=== PATIENT | female | born 1955 | race Hispanic/Latino ===

== ENCOUNTER → 2018-06-07 | Outpatient (CLI) | payer OTHER | END | disposition home or self-care (01) | LOC: RAH 09:04 | PROVIDERS: ATTEND Family Medicine | DX: Z12.31 Encounter for screening mammogram for malignant neoplasm of breast (principal) | CPT/HCPCS: 77067 ==

== ENCOUNTER → 2019-06-08 | Outpatient (CLI) | payer OTHER | END | disposition home or self-care (01) | LOC: RAH 13:54 | PROVIDERS: ATTEND Family Medicine | DX: Z12.31 Encounter for screening mammogram for malignant neoplasm of breast (principal) | CPT/HCPCS: 77067 ==

== ENCOUNTER → 2020-07-11 | Outpatient (CLI) | payer OTHER | END | disposition home or self-care (01) | LOC: RAH 14:36 | PROVIDERS: ATTEND Family Medicine | DX: Z12.31 Encounter for screening mammogram for malignant neoplasm of breast (principal); N64.89 Other specified disorders of breast | CPT/HCPCS: 77067 ==

== ENCOUNTER → 2020-11-05 | Outpatient (CLI) | payer OTHER | END | disposition home or self-care (01) | LOC: RAH 13:57 | PROVIDERS: ATTEND Family Medicine | DX: N60.01 Solitary cyst of right breast (principal) | CPT/HCPCS: 76641; 77065 ==

== ENCOUNTER 2021-06-29 11:22 | Emergency (ER) | payer OTHER ==
[~2021-06-29] VITALS: Ht 162.6 cm; Wt 59.0 kg
[2021-06-29 13:14] LABS: HEMATOCRIT 41.2 % (36-48); MEAN CORPUSCULAR HEMOGLOBIN 29.5 pg (27.0-33.0); MEAN CORPUSCULAR HGB CONC 32.8 g/dL (32.0-36.0); MEAN CORPUSCULAR VOLUME 90.2 fL (79-99); PLATELET COUNT (AUTO) 274 K/uL (130-400); RED BLOOD CELL COUNT(AUTO) 4.57 MIL/uL (4.00-5.50); RED CELL DISTRIBUTION WIDTH 12.3 % (11.0-15.5)
[2021-06-29 13:28] LABS: CREATININE 0.8 mg/dL (0.5-1.5); POTASSIUM 4.2 mmol/L (3.5-5.1)
[2021-06-29 13:32] LABS: ALBUMIN 4.2 g/dL (3.5-5.0); BILIRUBIN,TOTAL 0.4 mg/dL (0.2-1.0); TOTAL PROTEIN, SERUM 8.4 g/dL (6.0-8.3)
[2021-06-29 13:34] LABS: APPEARANCE,URINE CLEAR (CLEAR); BILIRUBIN,URINE NEGATIVE (NEGATIVE); COLOR,URINE YELLOW (YELLOW); GLUCOSE, URINE (UA) NEGATIVE (NEGATIVE); KETONES,URINE NEGATIVE (NEGATIVE); LEUKOCYTE ESTERASE ,URINE NEGATIVE (NEGATIVE); NITRATE,URINE NEGATIVE (NEGATIVE); OCCULT BLOOD,URINE TRACE-INTACT (NEGATIVE); PH,URINE 6.5 (5.0-8.0); PROTEIN,URINE NEGATIVE (NEGATIVE); UROBILINOGEN,URINE 0.2 mg/dL (0.2-1.0)
[2021-06-29 13:55] LABS: RBC,URINE 0-1 /HPF (0-1); WBC,URINE None Seen /HPF (0-1)
[2021-06-29 13:56] LABS: BACTERIA,URINE Rare /HPF (None Seen)
[2021-06-29 14:32] LABS: ERYTHROCYTE SEDIMENTATION RATE 15 MM/HR (0-30)
[2021-06-29 14:33] LABS: LYMPHOCYTES % (MANUAL) 17 % (22-44); MAN.DIFF COMMENT-IMPRESSION MANUAL DIFFERENTIAL; MONOCYTES % (MANUAL) 1 % (2-9); SEGMENTED NEUTROPHILS % 82 % (40-70)
[2021-06-29 14:34] LABS: PLATELET MORPHOLOGY COMMENT ADEQUATE
[2021-06-29] MEDS ORDERED: IOHEXOL-350 75 ML VIAL IV ONE (14:38)
[2021-06-29] MEDS ORDERED: 0.9% NACL 500ML IV.SOLN 500 ML IV ONE (18:00)
[2021-06-29] MEDS ORDERED: MORPHINE 2 MG SYG IVP ONE (18:00)
[2021-06-29] MEDS ORDERED: ONDANSETRON 4MG INJ IVP ONE (18:00)
[2021-06-29 18:31] VITALS: BP 138/69
== END 2021-06-29 18:35 | disposition home or self-care (01) ==
LOC: EDH 11:22
DX: R51.9 Headache, unspecified (principal); R11.0 Nausea; R42 Dizziness and giddiness; E11.9 Type 2 diabetes mellitus without complications; E78.00 Pure hypercholesterolemia, unspecified; I10 Essential (primary) hypertension; Z88.0 Allergy status to penicillin
CPT/HCPCS: 36415; 70450; 70496; 70498; 80053; 81001; 85025; 85651; 96361; 96374; 96375; 99285; J2405; J7040; Q9967

== ENCOUNTER → 2023-02-17 | Outpatient (CLI) | payer OTHER | END | disposition home or self-care (01) | LOC: RAH 09:48 | PROVIDERS: ATTEND Family Medicine | DX: Z12.31 Encounter for screening mammogram for malignant neoplasm of breast (principal) | CPT/HCPCS: 77067 ==

== ENCOUNTER 2024-01-28 09:57 | Emergency (ER) | payer OTHER ==
[~2024-01-28] VITALS: Ht 152.4 cm; Wt 53.5 kg
[2024-01-28] MEDS: 0.9%NACL 1000ML 1,000 ML IV STA (10:21)
[2024-01-28] MEDS: KETOROLAC 15MG/ML VIAL (15MG/ML) IV STA (10:21)
[2024-01-28 10:51] LABS: BASOPHILS # (AUTO) 0.04 K/uL (0.00-0.20); BASOPHILS % (AUTO) 0.4 % (0.0-5.0); EOSINOPHILS # (AUTO) 0.22 K/uL (0.00-0.70); EOSINOPHILS % (AUTO) 2.3 % (0.0-8.0); HEMATOCRIT 37.8 % (36-48); IMMATURE GRANULOCYTE ABSOLUTE 0.04 K/uL (0-1); LYMPHOCYTES # (AUTO) 4.1 K/uL (1.0-4.8); MEAN CORPUSCULAR HEMOGLOBIN 29.9 pg (27.0-33.0); MEAN CORPUSCULAR HGB CONC 33.6 g/dL (32.0-36.0); MEAN CORPUSCULAR VOLUME 88.9 fL (79-99); MONOCYTES # (AUTO) 0.6 K/uL (0.1-1.0); MONOCYTES % (AUTO) 5.7 % (3.0-13.0); NEUTROPHILS # (AUTO) 4.6 K/uL (1.8-7.7); NEUTROPHILS % (AUTO) 48.2 % (40.0-77.0); PLATELET COUNT (AUTO) 254 K/uL (130-400); RED BLOOD CELL COUNT(AUTO) 4.25 MIL/uL (4.00-5.50); RED CELL DISTRIBUTION WIDTH 13.4 % (11.0-15.5); WHITE BLOOD COUNT (AUTO) 9.6 K/uL (4.8-10.8)
[2024-01-28 10:52] LABS: APPEARANCE,URINE CLEAR (CLEAR); BILIRUBIN,URINE NEGATIVE (NEGATIVE); COLOR,URINE LIGHT-YELLOW (YELLOW); GLUCOSE, URINE (UA) NEGATIVE (NEGATIVE); KETONES,URINE NEGATIVE (NEGATIVE); LEUKOCYTE ESTERASE ,URINE NEGATIVE Leu/uL (NEGATIVE); NITRATE,URINE NEGATIVE (NEGATIVE); OCCULT BLOOD,URINE NEGATIVE (NEGATIVE); PROTEIN,URINE NEGATIVE (NEGATIVE); UROBILINOGEN,URINE 0.2 mg/dL (0.2-1.0)
[2024-01-28 10:57] LABS: ADD UA MICROSCOPIC NO
[2024-01-28 11:05] LABS: CREATININE 0.7 mg/dL (0.5-1.0); POTASSIUM 4.7 mmol/L (3.5-5.1)
[2024-01-28 11:09] LABS: ALBUMIN 3.7 g/dL (3.5-5.0); BILIRUBIN,TOTAL 0.5 mg/dL (0.2-1.0); TOTAL PROTEIN, SERUM 7.6 g/dL (6.0-8.3)
[2024-01-28] MEDS ORDERED: IOHEXOL 350 MG/ML 100ML INFUS..BTL IV ONE (12:42)
[2024-01-28 14:57] VITALS: BP 110/70; PULSE 90; RESP 18; O2SAT 98
[2024-01-28] MEDS ORDERED: ONDA4TAB10 PO (15:30)
== END 2024-01-28 16:30 | disposition home or self-care (01) ==
LOC: EDH 09:57
DX: K86.9 Disease of pancreas, unspecified (principal); K80.20 Calculus of gallbladder without cholecystitis without obstruction; E11.9 Type 2 diabetes mellitus without complications; E78.00 Pure hypercholesterolemia, unspecified; I10 Essential (primary) hypertension; Z88.0 Allergy status to penicillin
CPT/HCPCS: 99285; 74177; 96374; 76705; 84484; 80053; 83690; 85025; 81003; 36415; 93005; J7030; J1885; Q9967

== ENCOUNTER → 2024-02-08 | Outpatient (CLI) | payer OTHER ==
[~2024-02-08] MED LIST: GADOTERATE MEGLUMINE 10 MMOL/20 ML VIAL IV ONE; ONDA-243 PO
== END | disposition home or self-care (01) ==
LOC: RAH 06:58
PROVIDERS: ATTEND Internal Medicine Gastroenterology
DX: K80.20 Calculus of gallbladder without cholecystitis without obstruction (principal); K86.89 Other specified diseases of pancreas; R93.2 Abnormal findings on diagnostic imaging of liver and biliary tract
CPT/HCPCS: 74183; A9575

== ENCOUNTER 2024-02-26 08:25 | Emergency (ER) | payer OTHER ==
[~2024-02-26] VITALS: Ht 157.5 cm; Wt 48.1 kg
[~2024-02-26 08:25] MED LIST changes: -GADOTERATE MEGLUMINE 10 MMOL/20 ML VIAL IV ONE
[2024-02-26 09:38] LABS: BASOPHILS # (AUTO) 0.03 K/uL (0.00-0.20); BASOPHILS % (AUTO) 0.3 % (0.0-5.0); EOSINOPHILS # (AUTO) 0.41 K/uL (0.00-0.70); EOSINOPHILS % (AUTO) 4.5 % (0.0-8.0); HEMATOCRIT 38.5 % (36-48); IMMATURE GRANULOCYTE ABSOLUTE 0.03 K/uL (0-1); LYMPHOCYTES # (AUTO) 2.8 K/uL (1.0-4.8); LYMPHOCYTES % (AUTO) 30.4 % (21.0-51.0); MEAN CORPUSCULAR HEMOGLOBIN 29.9 pg (27.0-33.0); MEAN CORPUSCULAR HGB CONC 33.5 g/dL (32.0-36.0); MEAN CORPUSCULAR VOLUME 89.3 fL (79-99); MONOCYTES # (AUTO) 0.8 K/uL (0.1-1.0); MONOCYTES % (AUTO) 8.2 % (3.0-13.0); NEUTROPHILS # (AUTO) 5.2 K/uL (1.8-7.7); NEUTROPHILS % (AUTO) 56.3 % (40.0-77.0); PLATELET COUNT (AUTO) 317 K/uL (130-400); RED BLOOD CELL COUNT(AUTO) 4.31 MIL/uL (4.00-5.50); RED CELL DISTRIBUTION WIDTH 12.3 % (11.0-15.5); WHITE BLOOD COUNT (AUTO) 9.2 K/uL (4.8-10.8)
[2024-02-26 09:57] LABS: ALBUMIN 4.1 g/dL (3.5-5.0); BILIRUBIN,TOTAL 0.5 mg/dL (0.2-1.0); CREATININE 0.7 mg/dL (0.5-1.0); POTASSIUM 4.5 mmol/L (3.5-5.1); TOTAL PROTEIN, SERUM 8.6 g/dL (6.0-8.3)
[2024-02-26] MEDS: LACTATED RINGERS 1000ML IV STA (11:03)
[2024-02-26] MEDS ORDERED: ONDA-243 PO (11:41)
[2024-02-26] MEDS ORDERED: FENT1PAT59 TD (11:41)
[2024-02-26] MEDS: FENTANYL CITRATE PF 50 MCG/1 ML 2ML VIAL IVP ONE ×2 (11:46→14:35)
[2024-02-26] MEDS: ONDANSETRON 4MG INJ IV ONE (11:46)
[2024-02-26] MEDS ORDERED: [UNRECOGNIZED DRUG - CODE] IM (11:47)
[2024-02-26] MEDS ORDERED: NALO4SPR NS (11:47)
[2024-02-26 12:00] LABS: APPEARANCE,URINE CLEAR (CLEAR); BILIRUBIN,URINE NEGATIVE (NEGATIVE); COLOR,URINE COLORLESS (YELLOW); GLUCOSE, URINE (UA) NEGATIVE (NEGATIVE); KETONES,URINE NEGATIVE (NEGATIVE); LEUKOCYTE ESTERASE ,URINE NEGATIVE Leu/uL (NEGATIVE); NITRATE,URINE NEGATIVE (NEGATIVE); OCCULT BLOOD,URINE NEGATIVE (NEGATIVE); PROTEIN,URINE NEGATIVE (NEGATIVE); UROBILINOGEN,URINE 0.2 mg/dL (0.2-1.0)
[2024-02-26 12:01] LABS: ADD UA MICROSCOPIC NO
[2024-02-26 14:52] VITALS: BP 132/74; PULSE 78; RESP 16; O2SAT 98
== END 2024-02-26 15:10 | disposition home or self-care (01) ==
LOC: EDH 08:25
DX: C25.9 Malignant neoplasm of pancreas, unspecified (principal); K85.90 Acute pancreatitis without necrosis or infection, unspecified; I10 Essential (primary) hypertension; E11.9 Type 2 diabetes mellitus without complications; E78.00 Pure hypercholesterolemia, unspecified; Z79.899 Other long term (current) drug therapy; Z98.890 Other specified postprocedural states; Z88.0 Allergy status to penicillin
CPT/HCPCS: 99285; 96374; 96375; 80053; 83690; 85025; 81003; 36415; 96376; J7120; J3010 ×2; J2405